=== PATIENT | male | born 1960 | race Caucasian/White ===

== ENCOUNTER 2021-11-29 19:47 | Emergency (ER) | payer MEDICAID ==
[~2021-11-29] VITALS: Ht 172 cm; Wt 95.2 kg
--- NOTE | 2021-11-29 19:53 | ED Abdominal Pain ---
General Stated Complaint: LT SIDE ABD PAIN History of Present Illness Date Seen by Provider: Nov 29, 2021 Time Seen by Provider: 19:52 Initial Comments 61-year-old male presents with left lower quadrant pain. He reports has been there for about a week. He is got a bit of a mild dizziness but no other symptoms. He denies any nausea, vomiting, diarrhea. He had a normal bowel movement today. Patient reports that he is on his way through going home from [place] to [facility] and the pain was getting worse so he stopped to be evaluated. Patient denies any other medical issues and denies any other medications. Patient reports the pain is better if he presses in on his lower abdomen. Allergies and Home Medications Allergies Coded Allergies: Penicillins (Verified Allergy, Unknown, 11/29/21) Patient Home Medication List Home Medication List Reviewed: Yes Review of Systems Review of Systems Constitutional: No chills; dizziness; No fever EENTM: No Symptoms Reported Respiratory: Denies Cough, Denies Shortness of Air Cardiovascular: Denies Chest Pain; Lightheadedness Gastrointestinal: Abdominal Pain; Denies Constipated, Denies Diarrhea, Denies Nausea, Denies Vomiting Genitourinary: Denies Burning Musculoskeletal: No back pain Skin: no symptoms reported Psychiatric/Neurological: No Symptoms Reported Endocrine: No Symptoms Reported Physical Exam Vital Signs Vital Signs - First Documented 11/29/21 20:18 Temp 37.2 Pulse 57 Resp 20 B/P (MAP) 135/83 (100) Pulse Ox 98 Capillary Refill : Height/Weight/BMI Height: '" Weight: lbs. oz. kg; BMI Method: General Appearance: no apparent distress HEENT: PERRL/EOMI Neck: full range of motion, supple, normal inspection Respiratory: lungs clear, normal breath sounds Cardiovascular: normal peripheral pulses, regular rate, rhythm Gastrointestinal: soft; No guarding, No rebound; tenderness (mild llq ) Extremities: normal capillary refill Back: no CVA tenderness Neurologic/Psychiatric: alert, normal mood/affect, oriented x 3 Skin: normal color, warm/dry Progress/Results/Core Measures Results/Orders Lab Results Laboratory Tests Test 11/29/21 20:10 Range/Units White Blood Count 15.3 H 4.3-11.0 10^3/uL Red Blood Count 4.40 4.30-5.52 10^6/uL Hemoglobin 13.3 13.3-17.7 g/dL Hematocrit 40 40-54 % Mean Corpuscular Volume 91 80-99 fL Mean Corpuscular Hemoglobin 30 25-34 pg Mean Corpuscular Hemoglobin Concent 33 32-36 g/dL Red Cell Distribution Width 13.2 10.0-14.5 % Platelet Count 245 130-400 10^3/uL Mean Platelet Volume 8.6 L 9.0-12.2 fL Immature Granulocyte % (Auto) 0 % Neutrophils (%) (Auto) 54 42-75 % Lymphocytes (%) (Auto) 36 12-44 % Monocytes (%) (Auto) 9 0-12 % Eosinophils (%) (Auto) 1 0-10 % Basophils (%) (Auto) 0 0-10 % Neutrophils # (Auto) 8.2 H 1.8-7.8 X 10^3 Lymphocytes # (Auto) 5.5 H 1.0-4.0 X 10^3 Monocytes # (Auto) 1.3 H 0.0-1.0 X 10^3 Eosinophils # (Auto) 0.1 0.0-0.3 10^3/uL Basophils # (Auto) 0.1 0.0-0.1 10^3/uL Immature Granulocyte # (Auto) 0.1 0.0-0.1 10^3/uL Neutrophils % (Manual) 59 % Lymphocytes % (Manual) 32 % Monocytes % (Manual) 7 % Eosinophils % (Manual) 0 % Basophils % (Manual) 2 % Band Neutrophils 0 % Sodium Level 139 135-145 MMOL/L Potassium Level 3.9 3.6-5.0 MMOL/L Chloride Level 105 98-107 MMOL/L Carbon Dioxide Level 21 21-32 MMOL/L Anion Gap 13 5-14 MMOL/L Blood Urea Nitrogen 11 7-18 MG/DL Creatinine 1.01 0.60-1.30 MG/DL Estimat Glomerular Filtration Rate 75 BUN/Creatinine Ratio 11 Glucose Level 97 70-105 MG/DL Calcium Level 9.2 8.5-10.1 MG/DL Corrected Calcium 8.5-10.1 MG/DL Total Bilirubin 0.3 0.1-1.0 MG/DL Aspartate Amino Transf (AST/SGOT) 18 5-34 U/L Alanine Aminotransferase (ALT/SGPT) 15 0-55 U/L Alkaline Phosphatase 86 40-136 U/L C-Reactive Protein 0.40 <0.50 MG/DL Total Protein 7.2 6.4-8.2 GM/DL Albumin 4.6 H 3.2-4.5 GM/DL My Orders Orders - JANA BEAN DO Cbc With Automated Diff (11/29/21 19:56) Comprehensive Metabolic Panel (11/29/21 19:56) Ua Culture If Indicated (11/29/21 19:56) Crp Fs (11/29/21 19:56) Abdomen (Kub) 1 View (11/29/21 19:56) Ns Iv 1000 Ml (Sodium Chloride 0.9%) (11/29/21 19:56) Manual Differential (11/29/21 20:10) Ct Abdomen/Pelvis W (11/29/21 20:41) Fentanyl Inj (Sublimaze Injection) (11/29/21 20:44) Ondansetron Injection (Zofran Injectio (11/29/21 20:45) Iohexol Injection (Omnipaque 350 Mg/Ml 1 (11/29/21 20:45) Received Contrast (Hold Metformin- Contr (11/29/21 20:45) Sodium Chloride Flush (Catheter Flush Sy (11/29/21 20:45) Ns (Ivpb) (Sodium Chloride 0.9% Ivpb Bag (11/29/21 20:45) Toradol 30 Mg Ivp (11/29/21 21:42) Medications Given in ED Current Medications Medications Dose Ordered Sig/Noe Route Start Time Stop Time Status Last Admin Dose Admin Iohexol 100 ml ONCE ONCE IV 11/29/21 20:45 11/29/21 20:46 DC 11/29/21 21:06 100 ML Sodium Chloride 10 ml NEEDED PRN IV 11/29/21 20:45 11/29/21 21:06 10 ML Sodium Chloride 100 ml ONCE ONCE IV 11/29/21 20:45 11/29/21 20:46 DC 11/29/21 21:06 100 ML Vital Signs/I&O 11/29/21 11/29/21 20:18 20:30 Temp 37.2 Pulse 57 94 Resp 20 20 B/P (MAP) 135/83 (100) 121/77 Pulse Ox 98 97 Progress Progress Note : Progress Note Patient with slightly elevated white count but otherwise no acute findings on lab. Patient with a negative x-ray and CT abdomen pelvis. Patient with some mild tenderness on palpation. Patient was given some Toradol and Zofran in the ER. He can take Tylenol and ibuprofen for pain at home. Patient was offered a urinalysis to evaluate for potential urinary tract infection but declined. Patient was stable and discharged home. I recommend that when he gets back home he should follow-up with his primary care provider if symptoms have not improved or worsen. Diagnostic Imaging Diagonstic Imaging: CT Plain Films/CT/US/NM/MRI: abdomen, pelvis Comments Date of Exam:11/29/21 CT ABDOMEN/PELVIS W PROCEDURE: CT abdomen and pelvis with contrast. TECHNIQUE: Multiple contiguous axial images were obtained through the abdomen and pelvis after administration of intravenous contrast. Auto Exposure Controls were utilized during the CT exam to meet ALARA standards for radiation dose reduction. All CT scans use one or more of the following dose optimizing techniques: automated exposure control, MA and/or KvP adjustment based on patient size and exam type or iterative reconstruction. INDICATION: Left lower quadrant abdominal pain. COMPARISON: None FINDINGS: The lung bases are clear. There is a small hiatal hernia. The gallbladder, solid organs, vascular structures and bowel are unremarkable. There is no free air or free fluid. There is mild atherosclerosis of the abdominal aorta without aneurysm. There is no diverticulosis or inflammation. The appendix is normal. The urinary bladder and prostate are intact. There are stable postoperative changes involving the right hemipelvis and symphysis. IMPRESSION: Negative CT abdomen and pelvis. Reviewed: Reviewed by Me, Reviewed/Discussed Departure Impression Primary Impression: Left lower quadrant pain Disposition: HOME, SELF-CARE Condition: Stable Departure-Patient Inst. Patient Instructions: Abdominal Muscle Strain (DC), Abdominal Pain, Adult ED Add. Discharge Instructions: Tylenol or ibuprofen as needed for pain Follow-up with your primary care provider if symptoms are not improving after you return home or follow to an ER if symptoms continue to worsen JANA BEAN DO Nov 29, 2021 19:52
[2021-11-29] MEDS ORDERED: NS IV 1000 ML 1,000 ML IV STA (19:56)
[2021-11-29 20:22] LABS: HEMOGLOBIN 13.3 g/dL (13.3-17.7); MEAN CORPUSCULAR HEMOGLOBIN 30 pg (25-34); WHITE BLOOD COUNT 15.3 10^3/uL (4.3-11.0)
[2021-11-29 20:23] LABS: BASOPHILS # (AUTO) 0.1 10^3/uL (0.0-0.1); BASOPHILS % (AUTO) 0 % (0-10); EOSINOPHILS # (AUTO) 0.1 10^3/uL (0.0-0.3); EOSINOPHILS % (AUTO) 1 % (0-10); HEMATOCRIT 40 % (40-54); LYMPHOCYTES # (AUTO) 5.5 X 10^3 (1.0-4.0); LYMPHOCYTES % (AUTO) 36 % (12-44); MEAN CORPUSCULAR HGB CONC 33 g/dL (32-36); MEAN CORPUSCULAR VOLUME 91 fL (80-99); MEAN PLATELET VOLUME 8.6 fL (9.0-12.2); MONOCYTES # (AUTO) 1.3 X 10^3 (0.0-1.0); MONOCYTES % (AUTO) 9 % (0-12); NEUTROPHILS # (AUTO) 8.2 X 10^3 (1.8-7.8); NEUTROPHILS % (AUTO) 54 % (42-75); PLATELET COUNT 245 10^3/uL (130-400)
[2021-11-29 20:37] LABS: BAND NEUTROPHILS 0 %; BASOPHILS % (MANUAL) 2 %; EOSINOPHILS % (MANUAL) 0 %; LYMPHOCYTES % (MANUAL) 32 %; MONOCYTES % (MANUAL) 7 %; NEUTROPHILS % (MANUAL) 59 %
[2021-11-29 20:39] LABS: ALANINE AMINOTRANSFERASE 15 U/L (0-55); ALKALINE PHOSPHATASE 86 U/L (40-136); BILIRUBIN,TOTAL 0.3 MG/DL (0.1-1.0); BUN/CREATININE RATIO 11; CALCIUM 9.2 MG/DL (8.5-10.1); CARBON DIOXIDE 21 MMOL/L (21-32); CHLORIDE 105 MMOL/L (98-107); CREATININE SERUM 1.01 MG/DL (0.60-1.30); GFR ESTIMATED 75; GLUCOSE 97 MG/DL (70-105); POTASSIUM 3.9 MMOL/L (3.6-5.0); SODIUM 139 MMOL/L (135-145); TOTAL PROTEIN 7.2 GM/DL (6.4-8.2)
[2021-11-29 20:40] LABS: ALBUMIN 4.6 GM/DL (3.2-4.5)
--- NOTE | 2021-11-29 20:40 | Diagnostic Imaging Report ---
INDICATION: Lower abdominal pain COMPARISON: None. FINDINGS: Single view of the abdomen demonstrates prior orthopedic repair of the pelvic fractures across the symphysis and superior aspect of the acetabulum. Otherwise, osseous structures are unremarkable. There is no constipation, free air or obstruction. No abnormal calcifications. IMPRESSION: Negative KUB. Dictated by: Dictated on workstation # [id number]
[2021-11-29] MEDS ORDERED: fentaNYL INJ 100 MCG/2 ML AMP IVP STA (20:44)
[2021-11-29] MEDS ORDERED: ONDANSETRON 4 MG/2 ML (SDV) Z0FRAN IVP ONE (20:45)
[2021-11-29] MEDS ORDERED: IOHEXOL 350 MG/ML 100 ML (OMNIPAQUE 350) VIAL IV ONE (20:45)
[2021-11-29] MEDS ORDERED: HOLD METFORMIN - RECEIVED CONTRAST 20 ML VIAL IV SCH (20:45)
[2021-11-29] MEDS ORDERED: CATHETER FLUSH 10 ML SYR IV PRN (20:45)
[2021-11-29] MEDS ORDERED: NS 100 ML (IVPB) BAG IV ONE (20:45)
--- NOTE | 2021-11-29 21:27 | Diagnostic Imaging Report ---
PROCEDURE: CT abdomen and pelvis with contrast. TECHNIQUE: Multiple contiguous axial images were obtained through the abdomen and pelvis after administration of intravenous contrast. Auto Exposure Controls were utilized during the CT exam to meet ALARA standards for radiation dose reduction. All CT scans use one or more of the following dose optimizing techniques: automated exposure control, MA and/or KvP adjustment based on patient size and exam type or iterative reconstruction. INDICATION: Left lower quadrant abdominal pain. COMPARISON: None FINDINGS: The lung bases are clear. There is a small hiatal hernia. The gallbladder, solid organs, vascular structures and bowel are unremarkable. There is no free air or free fluid. There is mild atherosclerosis of the abdominal aorta without aneurysm. There is no diverticulosis or inflammation. The appendix is normal. The urinary bladder and prostate are intact. There are stable postoperative changes involving the right hemipelvis and symphysis. IMPRESSION: Negative CT abdomen and pelvis. Dictated by: Dictated on workstation # [id number]
[2021-11-29] MEDS ORDERED: KETOROLAC 30 MG/ML VIAL IVP STA (21:42)
[2021-11-29 22:15] VITALS: BP 125/65
== END 2021-11-29 22:17 | disposition home or self-care (01) ==
LOC: ER FS 19:49
DX: R10.32 Left lower quadrant pain (principal)
CPT/HCPCS: 36415; 74018; 74177; 80053; 85007; 85027; 86141